=== PATIENT | female | born 1990 | race Two or more races ===

== ENCOUNTER 2024-05-02 17:16 | Emergency (ER) | payer MEDICAID, OTHER ==
[~2024-05-02] VITALS: Ht 157.5 cm; Wt 72.7 kg
--- NOTE | 2024-05-02 17:42 | ED.PDOC ---
History of Present Illness HPI Comments HPI: Poor Historian. 33-year-old female presents to emergency department for right-sided chest tightness for the last two days constant with right upper extremity discomfort as well. Denies any fall or trauma. No alleviating or precipitating factors. Denies any other associated symptoms of nausea or vomiting shortness of breath or fever or cough. Patient went to her PCP who prescribed her lorazepam. She took one pill this morning. Symptoms persist. Denies any family history of coronary artery disease. Denies any tobacco abuse. Denies any drug abuse. Initial Vital Signs: Temp : 99.0 F BP: 122/74 HR: 104 RR: 16 SpO2: 100% Past Medical History: Denies Past Surgical History: , Cholecystectomy Social History: Denies smoking, ETOH, or drug use. Medications: Lorazepam Allergies: NKDA REVIEW OF SYSTEMS: CONSTITUTIONAL: Denies acute: fever, diaphoresis, chills, generalized weakness. HEAD: Denies acute: headache, photophobia Eyes: Denies acute: Double vision, vision loss, eye pain, eye discharge. EARS: Denies acute: tinnitus, hearing loss, ear discharge, ear pain, THROAT: Denies acute: sore throat, swelling, difficulty swallowing , pain with swallowing, change in voice. NECK: Denies acute: neck pain, neck swelling, stiff neck. HEART: Denies acute : palpitations, LUNGS: Denies acute: SOB, wheezing, cough, hemoptysis ABDOMEN: Denies acute: abdominal pain, Nausea, Vomiting, diarrhea, melena , hematemesis, hematochezia SKIN: Denies acute: rash, redness, lesions, itchiness. EXTREMITIES: Denies acute: calf pain, numbness, tingling, weakness, Denies acute: Low back pain. Neuro: Denies acute: focal neurological deficit, motor or sensory focal neurological deficit, tremors, seizure like activity, confusion, dizziness, change in mental status, loss of bowel or bladder function, cauda equina like symptoms. : Denies acute: dysuria, hematuria, flank pain, increase in urinary frequency. PSYCH: Denies acute: hallucination, suicidal ideation, homicidal ideation. FEMALE: Denies acute: abnormal vaginal bleeding, foul odor, unusual discharge. PHYSICAL EXAM: General: no acute distress, awake and alert. Head: normocephalic, atraumatic. Neck: supple, trachea is midline, no swelling. Throat: Normal phonation. Eyes:, no erythema, no purulent discharge, no proptosis, no icterus. Heart: regular rate, regular rhythm, no significant murmur appreciated. Lungs: no apparent respiratory distress, Able to speak in full sentences. No wheezing, no rhonchi, no crackles. No stridors Clear to auscultation bilaterally. Abdomen: non tender to palpation, non distended, soft, no guarding, no rebound, + bowel sounds. Neuro: Awake, Alert, oriented to name, self, situation, follows commands GCS=15. Speech is normal. Skin: no petechia, no purpura, no cyanosis, non-pale, not jaundice. Lower extremities: --no - Pitting edema no deformity, no focal swelling, no calf TTP. Makes eye contact. moves all four extremities. Face: no apparent facial droop. Ambulating in the ED independently. Chief Complaint: Chest Pain Time Seen by MD: 17:37 Reviewed Notes: Medications, Allergies Allergies: Coded Allergies: NO KNOWN ALLERGIES (Unverified , 05/02/24) Information Source: Patient Mode of Arrival: Ambulatory Was a procedure done? Was a procedure done?: No X-Ray, Labs, Meds, VS Vital Signs Date Time Temp Pulse Resp B/P (MAP) Pulse Ox O2 Delivery O2 Flow Rate FiO2 05/02/24 21:01 98.0 98.0 05/02/24 21:01 98.0 05/02/24 20:27 73 05/02/24 20:15 98.7 05/02/24 20:09 79 18 97 Room Air* 0 21 05/02/24 20:09 98.7 79 18 116/72 (87) 97 98.7 05/02/24 18:08 66 05/02/24 17:30 99.0 101 16 122/74 (90) 100 05/02/24 17:23 88 Lab Test 05/02/24 20:14 05/02/24 18:45 05/02/24 17:29 Range/Units Urine Color Colorless Yellow Urine Clarity Clear Clear Urine pH 6.0 5.0-9.0 Urine Specific [place] 1.008 1.001-1.035 Urine Protein Negative Negative Urine Ketones Negative Negative Urine Blood Negative Negative /uL Urine Nitrite Negative Negative Urine Bilirubin Negative Negative Urine Urobilinogen Normal Negative mg/dL Urine Leukocyte Esterase Negative Negative /uL Urine RBC 2 0 - 4 /hpf Urine WBC 1 0 - 5 /hpf Urine Squamous Epithelial Cells Few <5 /hpf Urine Bacteria Few H None Seen /hpf Urine Glucose Normal Normal mg/dL Urine Opiates Screen Neg NEGATIVE Urine Fentanyl Screen Neg NEGATIVE Urine Barbiturates Screen Neg NEGATIVE Urine Phencyclidine Screen Neg NEGATIVE Urine Amphetamines Screen Neg NEGATIVE Urine Benzodiazepines Screen Neg NEGATIVE Urine Cocaine Screen Neg NEGATIVE Urine Cannabinoids Screen Neg NEGATIVE Troponin I High Sensitivity 4 5 </=34 ng/L White Blood Count 9.7 4.4-10.8 10^3/uL Red Blood Count 5.01 4.0-5.20 10^6/uL Hemoglobin 14.3 12.2-16.2 g/dL Hematocrit 42.3 36.0-46.0 % Mean Corpuscular Volume 84.4 80.0-100.0 fL Mean Corpuscular Hemoglobin 28.5 28.0-32.0 pg Mean Corpuscular Hemoglobin Concent 33.7 32.0-36.0 g/dL Red Cell Distribution Width 13.4 11.8-14.3 % Platelet Count 321 140-450 10^3/uL Mean Platelet Volume 9.0 6.9-10.8 fL Neutrophils (%) (Auto) 52.4 37.0-80.0 % Lymphocytes (%) (Auto) 39.4 10.0-50.0 % Monocytes (%) (Auto) 6.1 0.0-12.0 % Eosinophils (%) (Auto) 1.3 0.0-7.0 % Basophils (%) (Auto) 0.8 0.0-2.0 % Neutrophils # (Auto) 5.1 1.6-8.6 10 ^3/uL Lymphocytes # (Auto) 3.8 0.4-5.4 10 ^3/uL Monocytes # (Auto) 0.6 0-1.3 10 ^3/uL Eosinophils # (Auto) 0.1 0-0.8 10 ^3/uL Basophils # (Auto) 0.1 0-0.2 10 ^3/uL Nucleated Red Blood Cells 0.1 % D-Dimer, Quantitative 0.31 0.0-0.49 mg/L FEU Sodium Level 138 136-145 mmol/L Potassium Level 4.0 3.5-5.1 mmol/L Chloride Level 106 98-107 mmol/L Carbon Dioxide Level 24 20-31 mmol/L Anion Gap 8 5-15 Blood Urea Nitrogen 8 L 9-23 mg/dL Creatinine 0.72 0.550-1.02 mg/dL Glomerular Filtration Rate Calc 112 >90 mL/min BUN/Creatinine Ratio 11.1 10.0-20.0 Serum Glucose 109 H 74-106 mg/dL Calcium Level 9.8 8.7-10.4 mg/dL Magnesium Level 1.9 1.6-2.6 mg/dL Total Bilirubin 0.3 0.2-1.0 mg/dL Aspartate Amino Transferase (AST) 19 13-40 U/L Alanine Aminotransferase (ALT) 26 7-40 U/L Alkaline Phosphatase 96 46-116 U/L B-Type Natriuretic Peptide 17.66 0-100 pg/mL Total Protein 7.2 5.7-8.2 g/dL Albumin 4.6 3.2-4.8 g/dL Beta HCG, Quantitative 1.4 L 1.5-4.2 mIU/mL Current Medications Medications (Trade) Dose Ordered Sig/Ivone Route Start Time Stop Time Status Last Admin Aspirin (Ecotrin Enteric Coated Tablet) 325 mg ONCE ONCE PO 05/02/24 19:45 05/02/24 19:53 DC 05/02/24 20:14 Acetaminophen (Tylenol Tablet) 650 mg ONCE ONCE PO 05/02/24 19:45 05/02/24 19:53 DC 05/02/24 20:15 Ceftriaxone Sodium 50 ml @ 100 mls/hr ONCE ONCE IV 05/02/24 20:00 05/02/24 20:29 DC 05/02/24 20:30 [place] [id number] Ph: [phone] DIAGNOSTIC IMAGING Diagnostic Imaging Report : [id number] Signed PATIENT: LU POLLOCKT: [id number] UNIT: [id number] : 1990 LOC: ER ROOM / BED: / AGE / SEX: 33 / F ADM STATUS: REG ER SERVICE 1720 ORDERING PHYSICIAN: SHEILA JAIMES MD PROCEDURE(s): CXR2 - CHEST TWO VIEWS ROUTINE REASON: CHEST PAIN ORDER NUMBER(s): [id number], ACCESSION NUMBER(s): [id number] EXAMINATION: Chest x-ray 1 view CLINICAL HISTORY: CHEST PAIN COMPARISON: None FINDINGS: Central interstitial prominence. No lobar consolidation is identified. No definite pleural effusions or pneumothorax. The cardiomediastinal silhouette appears within normal limits given technique. IMPRESSION: Central interstitial prominence is relatively nonspecific but can be seen with edema, reactive airway changes as well as atypical / viral infection. Please correlate clinically. ATED BY: JEAN MARIE ACEVEDO MD DICTATED DATE/TIME: 05/02/241937 SIGNED BY: JEAN MARIE ACEVEDO MD SIGNED DATE/TIME: 05/02/241937 CC: Time of 1ST Reevaluation: 18:37 Reevaluation 1ST: Unchanged Patient Education/Counseling: Diagnosis, Treatment Family Education/Counseling: No Family Present Departure 1 Departure Time of Disposition: 19:37 Impression: Primary Impression: Chest pain Disposition: 01 HOME / SELF CARE / HOMELESS Condition: Stable Additional Instructions: Additional discharge instructions: You MUST follow-up with your primary care/family doctor in 1 to 2 days. If you are unable to see your primary care/family doctor, please return to our emergency room for re-assessment and re-evaluation in 1 to 2 days. Return to the emergency room here in our facility or to the nearest ER [facility] if your symptoms change or worsen. CONSULTATIONS: you MUST Follow-up for consultation as soon as possible with: cardiology in 1-2 days. Please call for appointment. You MUST call the consultants office yourself to make an appointment. You may need to arrange that through your insurance and/or your primary/family doctor. If you are unable to see the sap plant maintenance consultant in 1 to 2 days, you must return to our emergency room (or any other ER of your choice) for re-assessment and re-ev aluation. Adequate fluid hydration. Discharged With: Self Critical Care Note Critical Care Time?: No Heart Score Heart Score: Heart Score Response (Comments) Value History Slightly Suspicious 0 EKG Normal 0 Age <45 0 Risk Factors No known risk factors 0 Troponin Normal limit 0 Total 0 I personally scribed for IAN HAMMER DO ([email or web address]) on 05/02/24 at 17:42. Electronically submitted by Ang Lynn ([email or web address]). I personally scribed for IAN HAMMER DO ([email or web address]) on 05/02/24 at 19:26. Electronically submitted by Lizbeth Alicea ([email or web address]). I personally scribed for IAN HAMMER DO ([email or web address]) on 05/02/24 at 19:39. Electronically submitted by Lizbeth Alicea ([email or web address]). I personally scribed for IAN HAMMER DO ([email or web address]) on 05/02/24 at 19:42. Electronically submitted by Lizbeth Alicea ([email or web address]). IAN HAMMER DO May 02, 2024 17:42
[2024-05-02 18:33] LABS: Basophils # (auto) 0.1 10 ^3/uL (0-0.2); Basophils % (auto) 0.8 % (0.0-2.0); Eosinophils # (auto) 0.1 10 ^3/uL (0-0.8); Eosinophils % (auto) 1.3 % (0.0-7.0); Hematocrit 42.3 % (36.0-46.0); Hemoglobin 14.3 g/dL (12.2-16.2); Lymphocytes # (auto) 3.8 10 ^3/uL (0.4-5.4); Lymphocytes % (auto) 39.4 % (10.0-50.0); Mean Corpuscular Hemoglobin 28.5 pg (28.0-32.0); Mean Corpuscular Hgb Conc. 33.7 g/dL (32.0-36.0); Mean Corpuscular Volume 84.4 fL (80.0-100.0); Monocytes # (auto) 0.6 10 ^3/uL (0-1.3); Monocytes % (auto) 6.1 % (0.0-12.0); Neutrophils # (auto) 5.1 10 ^3/uL (1.6-8.6); Neutrophils % (auto) 52.4 % (37.0-80.0); Nucleated Red Blood Cells % 0.1 %; Platelet Count (auto) 321 10^3/uL (140-450); Red Blood Cells 5.01 10^6/uL (4.0-5.20); Red Cell Distribution Width 13.4 % (11.8-14.3); White Blood Cell 9.7 10^3/uL (4.4-10.8)
[2024-05-02 18:47] LABS: Alanine Aminotransferase 26 U/L (7-40); Albumin 4.6 g/dL (3.2-4.8); Alkaline Phosphatase 96 U/L (46-116); Anion Gap 8 (5-15); Aspartate Aminotransferase 19 U/L (13-40); BUN/Creatinine Ratio 11.1 (10.0-20.0); Calcium 9.8 mg/dL (8.7-10.4); Carbon Dioxide 24 mmol/L (20-31); Chloride 106 mmol/L (98-107); Sodium 138 mmol/L (136-145); Total Protein 7.2 g/dL (5.7-8.2)
[2024-05-02 18:49] LABS: Bilirubin, Total 0.3 mg/dL (0.2-1.0); Blood Urea Nitrogen 8 mg/dL (9-23); Glucose 109 mg/dL (74-106)
--- NOTE | 2024-05-02 18:52 | ECG ---
[facility] Test Date: 2024-05-02 Test Time: 18:06:28 Pat Name: JOSE OJEDA Department: ED Room: Gender: F Computer Game Programmer: MICH : 1990 Requested By: SHEILA JAIMES Order Number: [id number] Reading MD: Freddy Guillen Measurements Intervals [place] Rate: 66 P: 21 AR: 139 QRS: 74 QRSD: 83 T: 61 QT: 369 QTc: 387 Interpretive Statements Sinus rhythm Electronically Signed On 05-05-2024 13:05:08 PST by Freddy Guillen Please click the below link to view image of tracing.
--- NOTE | 2024-05-02 19:40 | DVH ---
EXAMINATION: Chest x-ray 1 view CLINICAL HISTORY: CHEST PAIN COMPARISON: None FINDINGS: Central interstitial prominence. No lobar consolidation is identified. No definite pleural effusions or pneumothorax. The cardiomediastinal silhouette appears within normal limits given technique. IMPRESSION: Central interstitial prominence is relatively nonspecific but can be seen with edema, reactive airway changes as well as atypical / viral infection. Please correlate clinically.
[2024-05-02 20:09] VITALS: BP 116/72; PULSE 79; RESP 18; O2SAT 97
[2024-05-02] MEDS: ASPirin-EC 325mg tab PO ONE (20:14)
[2024-05-02] MEDS: ACETAMINOPHEN 325 MG TAB PO ONE (20:15)
[2024-05-02 20:27] VITALS: PULSE 73
[2024-05-02] MEDS: cefTRIAXone 1GM/50ML D5W 50 ML IV ONE (20:30)
[2024-05-02] MEDS: NITROGLYCERIN 0.4 MG SL TAB SL ONE (20:49)
[2024-05-02 21:00] LABS: Amphetamine Screen, Urine Neg (NEGATIVE); Barbiturate Scree,Urine Neg (NEGATIVE); Benzodiazephine Screen, Urine Neg (NEGATIVE); Cannabinoid Screen, Urine Neg (NEGATIVE); Cocaine Screen, Urine Neg (NEGATIVE); Opiate Scree,Urine Neg (NEGATIVE); Phencyclidine Screen, Urine Neg (NEGATIVE); Urine Bacteria FEW /hpf (None Seen); Urine Blood Negative /uL (Negative); Urine Clarity Clear (Clear); Urine Color Colorless (Yellow); Urine Protein, UAD Negative (Negative); Urine Specific Gravity 1.008 (1.001-1.035); Urine Squamous Epithelial Cell FEW /hpf (<5); Urine Urobilinogen Normal (Negative); Urine WBC 1 /hpf (0 - 5)
[2024-05-02 21:01] VITALS: TEMP 98
--- NOTE | 2024-05-03 07:42 | ECG ---
[facility] Test Date: 2024-05-02 Test Time: 20:27:47 Pat Name: JOSE OJEDA Department: ER Room: Gender: F Continuous Improvement Facilitator: KAREEM : 1990 Requested By: SHEILA JAIMES Order Number: [id number] Reading MD: Freddy Guillen Measurements Intervals [place] Rate: 73 P: 30 FL: 149 QRS: 70 QRSD: 75 T: 57 QT: 361 QTc: 398 Interpretive Statements Sinus rhythm RSR' in V1 or V2, probably normal variant Electronically Signed On 05-05-2024 13:05:14 PST by Freddy Guillen Please click the below link to view image of tracing.
--- NOTE | 2024-05-03 07:42 | ECG ---
[facility] Test Date: 2024-05-02 Test Time: 17:23:28 Pat Name: JOSE OJEDA Department: ER Room: Gender: F Office Support: ADIS : 1990 Requested By: SHEILA JAIMES Order Number: [id number] Reading MD: Freddy Guillen Measurements Intervals [place] Rate: 88 P: 46 DE: 148 QRS: 71 QRSD: 80 T: 63 QT: 355 QTc: 430 Interpretive Statements Sinus rhythm Electronically Signed On 05-05-2024 13:05:06 PST by Freddy Guillen Please click the below link to view image of tracing.
== END 2024-05-02 21:32 | disposition home or self-care (01) ==
LOC: ER 17:16
DX: R07.89 Other chest pain (principal); Z90.49 Acquired absence of other specified parts of digestive tract; Z79.899 Other long term (current) drug therapy
CPT/HCPCS: 36415; 71046; 80053; 80307; 81001; 83735; 83880; 84484; 84702; 85025; 85379; 93005; 96365; 99285; J0696

== ENCOUNTER 2025-05-07 22:16 | Emergency (ER) | payer MEDICAID ==
[~2025-05-07] VITALS: Ht 160 cm; Wt 68.2 kg
[2025-05-07 23:01] VITALS: TEMP 98; O2SAT 100
[2025-05-07] MEDS: ONDANSETRON ODT 4 MG TAB PO ONE (23:37)
[2025-05-07] MEDS: MORPHINE SULFATE 4 MG/ML SYR/VIAL IM ONE (23:38)
[2025-05-07 23:42] LABS: Hematocrit 40.8 % (36.0-46.0); Hemoglobin 13.0 g/dL (12.2-16.2); Mean Corpuscular Hemoglobin 28.0 pg (28.0-32.0); Mean Corpuscular Volume 87.6 fL (80.0-100.0); Nucleated Red Blood Cells % 0.1 %
[2025-05-07 23:51] LABS: Chloride 102 mmol/L (98-107); Potassium 4.3 mmol/L (3.5-5.1)
[2025-05-07 23:52] LABS: Anion Gap 9 (5-15); Sodium 131 mmol/L (136-145)
[2025-05-07 23:56] LABS: Calcium 8.5 mg/dL (8.7-10.4); Carbon Dioxide 20 mmol/L (20-31)
[2025-05-07 23:57] LABS: Glucose 105 mg/dL (74-106)
[2025-05-07 23:58] LABS: BUN/Creatinine Ratio 4.7 (10.0-20.0); Blood Urea Nitrogen 10 mg/dL (9-23)
[2025-05-08 00:06] VITALS: BP 105/70; PULSE 79; RESP 18
--- NOTE | 2025-05-08 00:12 | DVH ---
CLINICAL HISTORY: Abdominal pain. TECHNIQUE: CT of the abdomen and pelvis was performed without intravenous contrast. This exam was performed according to our departmental dose optimization program. Up-to-date CT equipment and radiation dose reduction techniques are utilized as appropriate. CTDIvol: 8.3 mGy; DLP: 523.2 mGy-cm. COMPARISON: None available. FINDINGS: Lack of intravenous contrast limits assessment of the organs and vasculature. Within this limitation, the following assessment is made: Lower Chest: Lung Bases: Minimal dependent subsegmental atelectasis and/or scarring of the lung bases.. Abdomen and Pelvis: Liver: Unremarkable. Gallbladder: Prior cholecystectomy. Bile Ducts: Unremarkable. Pancreas: Unremarkable. Spleen: Unremarkable. Adrenal glands: Unremarkable. Kidneys/Ureters: Unremarkable. Stomach: Unremarkable. Small and Large Bowel: Unremarkable. Appendix: Appendix is not conspicuous; however, no periappendiceal fat stranding or liquid collection to suggest acute appendicitis. Vasculature: Unremarkable. No evidence of an abdominal aortic aneurysm. Lymph nodes: Unremarkable. Mesentery: Small volume of free liquid within the abdomen and pelvis. Multiple small foci of intraperitoneal gas throughout the abdomen and pelvis. Pelvic Organs: Prior hysterectomy. Bladder: Unremarkable. Abdominal Wall/Soft tissue: Large crescentic liquid collection along the right lateral abdominal wall measuring approximately 24 x 14 x 37 cm (CC x AP x TV; 601/37, 2/45), which is associated with multiple tiny foci of gas. Moderate subcutaneous edema of the abdominal wall. Bones: Unremarkable. Other: None. IMPRESSION: Small volume of free liquid within the abdomen and pelvis, multiple small foci of intraperitoneal gas throughout the abdomen and pelvis, large crescentic liquid collection along the right lateral abdominal wall (with multiple tiny foci of internal gas) measuring approximately 24 x 14 x 37 cm (CC x AP x TV), and moderate subcutaneous edema of the abdominal wall. These findings are consistent with the patient's clinical history of recent surgery (given history of recent hysterectomy).
[2025-05-08] MEDS ORDERED: PERCOT PO (00:15)
[2025-05-08] MEDS ORDERED: ZOFR4T PO (00:15)
[2025-05-08] MEDS ORDERED: LACT10SO3 PO (00:19)
--- NOTE | 2025-05-08 00:19 | ED.PDOC ---
History of Present Illness HPI Comments 34-year-old female complaining of lower abdominal pain which started today. States on the 05 of May step hysterectomy done at [facility]. States she was prescribed [place] for pain, she took one 2 hours ago and felt no significant improvement. Says she has not noticed some clear discharge coming out of one of the incision sites. On the right side. Patient reports 10/10 pain right now. States she did have urination and approximate 2 hours ago and she did have small bowel movement earlier this morning. Chief Complaint: Wound Check Time Seen by MD: 22:34 Reviewed Notes: Nurses Notes, Medications, Allergies Allergies: Coded Allergies: NO KNOWN ALLERGIES (Unverified , 05/02/24) Information Source: Patient Mode of Arrival: Wheelchair Past Medical History PAST MEDICAL HISTORY: Denies Surgical History: Hysterectomy, Denies all surgeries DIRECTOR OF PREMIUM SEAT SALES History: No Pertinent DIRECTOR OF PREMIUM SEAT SALES History Constitutional: denies: chills, diaphoresis, fatigue, fever, malaise, sweats, weakness, others EENTM: denies: blurred vision, double vision, ear bleeding, ear discharge, ear drainage, ear pain, ear ringing, eye pain, eye redness, hearing loss, mouth pain, mouth swelling, nasal discharge, nose bleeding, nose congestion, nose pain, photophobia, tearing, throat pain, throat swelling, voice changes, others Respiratory: denies: cough, hemoptysis, orthopnea, SOB at rest, shortness of breath, SOB with excertion, stridor, wheezing, others Cardiovascular: denies: chest pain, dizzy spells, diaphoresis, Dyspnea on exertion, edema, irregular heart beat, left arm pain, lightheadedness, palpitations, PND, syncope, others Gastrointestinal: reports: abdominal pain; denies: abdomen distended, blood streaked bowels, constipated, diarrhea, dysphagia, difficulty swallowing, hematemesis, melena, nausea, poor appetite, poor fluid intake, rectal bleeding, rectal pain, vomiting, others Genitourinary: denies: abnormal vagina bleeding, burning, dyspareunia, dysuria, flank pain, frequency, hematuria, incontinence, pain, , vagina discharge, urgency, others Neurological: denies: dizziness, fainting, headache, left sided numbness, left sided weakness, numbness, paresthesia, pre-existing deficit, right sided numbness, right sided weakness, seizure, speech problems, tingling, tremors, weakness, others Musculoskeletal: denies: back pain, gout, joint pain, joint swelling, muscle pain, muscle stiffness, neck pain, others Integumetry: denies: bruises, change in color, change in hair/nails, dryness, laceration, lesions, lumps, rash, wounds, others Allergic/Immunocompromised: denies: Difficulty Healing, Frequent Infections, Hives, Itching, others Hematologic/Lymphatic: denies: anemia, blood clots, easy bleeding, easy bruising, swollen glands, others Endocrine: denies: excessive hunger, excessive sweating, excessive thirst, excessive urination, flushing, intolerance to cold, intolerance to heat, unexplained weight gain, unexplained weight loss, others Psychiatric: denies: anxiety, bipolar disorder, depression, hopeless, panic disorder, schizophrenia, sleepless, suicidal, others All Other Systems: Reviewed and Negative Physical Exam General Appearance: Moderate Distress, Normal HEENT: Normal ENT Inspection, Pharynx Normal, TMs Normal Neck: Full Range of Motion, Non-Tender, Normal, Normal Inspection Respiratory: Chest Non-Tender, Lungs Clear, No Accessory Muscle Use, No Respiratory Distress, Normal Breath Sounds Cardiovascular: No Edema, No JVD, No Murmur, No Gallop, Normal Peripheral Pulses, Regular Rate/Rhythm Breast Exam: Deferred Gastrointestinal: Diffuse (Diffuse lower abdominal tenderness.), No Organomegaly, Soft Genitalia: Deferred Pelvic: Deferred Rectal: Deferred Extremities: No calf tenderness, Normal capillary refill, Normal inspection, Normal range of motion, Non-tender, No pedal edema Musculoskeletal : Apperance: Normal Neurologic: Alert, general practice II-XII nml as Tested, No Motor Deficits, Normal Affect, Normal Mood, No Sensory Deficits Cerebellar Function: Normal Reflexes: Normal Skin: Dry, Lacerations (Three laparoscopic surgical sites noted, all appeared to be sealed, no obvious discharge. Lower abdominal area is tender but no erythemic noted.), Normal Color, Warm Lymphatic: No Adenopathy Was a procedure done? Was a procedure done?: No Differential Dx Considerations may include: Cellulitis, abscess, hematoma X-Ray, Labs, Meds, VS Vital Signs Date Time Temp Pulse Resp B/P (MAP) Pulse Ox O2 Delivery O2 Flow Rate FiO2 05/08/25 00:06 79 18 105/70 05/07/25 23:38 83 18 106/62 05/07/25 23:01 88 18 100 05/07/25 23:01 98.0 88 18 106/71 (83) 100 98.0 05/07/25 22:20 97.8 112 22 136/109 100 97.8 Lab Test 05/07/25 23:14 Range/Units White Blood Count 12.0 H 4.4-10.8 10^3/uL Red Blood Count 4.65 4.0-5.20 10^6/uL Hemoglobin 13.0 12.2-16.2 g/dL Hematocrit 40.8 36.0-46.0 % Mean Corpuscular Volume 87.6 80.0-100.0 fL Mean Corpuscular Hemoglobin 28.0 28.0-32.0 pg Mean Corpuscular Hemoglobin Concent 32.0 32.0-36.0 g/dL Red Cell Distribution Width 13.2 11.8-14.3 % Platelet Count 266 140-450 10^3/uL Mean Platelet Volume 8.2 6.9-10.8 fL Neutrophils (%) (Auto) 77.8 37.0-80.0 % Lymphocytes (%) (Auto) 16.8 10.0-50.0 % Monocytes (%) (Auto) 4.8 0.0-12.0 % Eosinophils (%) (Auto) 0.3 0.0-7.0 % Basophils (%) (Auto) 0.3 0.0-2.0 % Neutrophils # (Auto) 9.3 H 1.6-8.6 10 ^3/uL Lymphocytes # (Auto) 2.0 0.4-5.4 10 ^3/uL Monocytes # (Auto) 0.6 0-1.3 10 ^3/uL Eosinophils # (Auto) 0 0-0.8 10 ^3/uL Basophils # (Auto) 0 0-0.2 10 ^3/uL Nucleated Red Blood Cells 0.1 % Sodium Level 131 L 136-145 mmol/L Potassium Level 4.3 3.5-5.1 mmol/L Chloride Level 102 98-107 mmol/L Carbon Dioxide Level 20 20-31 mmol/L Anion Gap 9 5-15 Blood Urea Nitrogen 10 9-23 mg/dL Creatinine 2.14 H 0.550-1.02 mg/dL Glomerular Filtration Rate Calc 30 >90 mL/min BUN/Creatinine Ratio 4.7 L 10.0-20.0 Serum Glucose 105 74-106 mg/dL Calcium Level 8.5 L 8.7-10.4 mg/dL Current Medications Medications (Trade) Dose Ordered Sig/Ivone Route Start Time Stop Time Status Last Admin Morphine Sulfate 4 mg ONCE ONCE IM 05/07/25 23:15 05/07/25 23:16 DC 05/07/25 23:38 Ondansetron HCl (Zofran Po) 4 mg ONCE ONCE PO 05/07/25 23:15 05/07/25 23:16 DC 05/07/25 23:37 X-Ray, Labs, Meds, VS Comment Imaging: X-rays and CT scans were reviewed and interpreted by this provider, imaging shows no fractures and no pathological disease. Pending radiology review. Laboratory: Labs reviewed and interpreted by this provider. No significant abnormalities noted. Patient has prior medical visits reviewed. Med reconciliation performed Vital signs reviewed Time of 1ST Reevaluation: 00:10 Reevaluation 1ST: Unchanged Patient Education/Counseling: Diagnosis, Treatment, Prognosis, Need For Follow Up (Patient states she has a follow up appointment with the surgeon on 05/10.) Family Education/Counseling: No Family Present SEPSIS Sepsis Screen Date sepsis recognized/suspect: May 07, 2025 Time Sepsis recognized/suspect: 2222 Recent Procedure: No On Antibiotic Therapy: No Respiratory Rate >20: No Heart Rate >90: Yes Temp<36 C (96.8 F) or >38.3 C: No SBP <90 or MAP <65 mmHG: No New Acute Mental Status Change: No Is the patient on CPAP, BIPAP,: No Physician Orders Ct Ab Pel Wo Con-No Oral Or Iv (05/07/25 23:04) Vital Signs Date Time Temp Pulse Resp B/P (MAP) Pulse Ox O2 Delivery O2 Flow Rate FiO2 05/08/25 00:06 79 18 105/70 05/07/25 23:38 83 18 106/62 05/07/25 23:01 88 18 100 05/07/25 23:01 98.0 88 18 106/71 (83) 100 98.0 05/07/25 22:20 97.8 112 22 136/109 100 97.8 Laboratory Tests Test 05/07/25 23:14 White Blood Count 12.0 10^3/uL (4.4-10.8) H Medications Medications Dose Ordered Sig/Ivone Route Start Time Stop Time Status Last Admin Dose Admin Morphine Sulfate 4 mg ONCE ONCE IM 05/07/25 23:15 05/07/25 23:16 DC 05/07/25 23:38 Ondansetron HCl 4 mg ONCE ONCE PO 05/07/25 23:15 05/07/25 23:16 DC 05/07/25 23:37 Departure 1 Departure Time of Disposition: 00:13 Impression: Primary Impression: Postoperative pain Disposition: HOME / SELF CARE / HOMELESS Condition: Stable Referrals Follow up in the emergency department in the next 24-48 hours if symptoms worsen. It was advised to follow up with your primary care doctor in the next 3-4 days for further evaluation. e-Prescriptions Lactulose (Lactulose) 10 Gm/15 Ml Katie 10 GM PO DAILY PRN, #200 ML Prov: ALVAREZ GALAVIZ 05/08/25 Ondansetron Odt 4MG Tab (ZOFRAN PO) 4 Mg Tb 4 MG PO TID PRN, #20 TAB ODT TAB-DISSOLVE IN MOUTH, THEN SWALLOW Prov: ALVAREZ GALAVIZ 05/08/25 Oxycodone W/ Acetaminophen (Percocet 5/325MG) 1 Tab Tb 1 TAB PO BID PRN, #10 TAB Prov: ALVAREZ GALAVIZ 05/08/25 Critical Care Note Critical Care Time?: No Stability Stability form required: No Heart Score Heart Score: Heart Score Response (Comments) Value History N/A 0 EKG N/A 0 Age N/A 0 Risk Factors N/A 0 Troponin N/A 0 Total 0 ALVAREZ GALAVIZ May 08, 2025 00:19
[2025-05-08] MEDS: OXYCODONE W/ ACETAMINOPHEN 5/325MG TABLET PO ONE (00:26)
== END 2025-05-08 00:35 | disposition home or self-care (01) ==
LOC: ER 22:16
DX: G89.18 Other acute postprocedural pain (principal); Z90.710 Acquired absence of both cervix and uterus; Z79.899 Other long term (current) drug therapy
CPT/HCPCS: 36415; 74176; 80048; 85025; 96372; 99285; J2270; Q0162